=== PATIENT | female | born 1960 | race Caucasian/White ===

== ENCOUNTER 2019-10-22 13:04 | Outpatient (CLI) | payer MEDICARE, SELFPAY ==
--- NOTE | 2019-10-22 13:13 | CT_ITS ---
WS: [id number] CTA ABDOMINAL AORTA WITH RUNOFF TECHNIQUE: Contrast enhanced CTA of the abdominal aorta with bilateral lower extremity runoff. Multip lanar reformatted images were obtained. MIP reformats were also reviewed. CLINICAL INFORMATION: PERIPHERAL ARTERIAL DISEASE COMPARISON: None. DLP: 1490.[address] scans at [facility] use at least one of these dose optimization techniques: automat ed exposure control; mA and/or kV adjustment per patient size (includes targeted exams where dose is matched to clinical indication); or iterative reconstruction. FINDINGS: Normal liver. Cholecystectomy clips. Portal vein and splenic vein are patent. Splenic granu anh. Lung bases are well aerated. Celiac and SMA are patent. Proximal renal arteries are patent. Ad renal glands are normal. Normal bilateral renal parenchymal enhancement. RIGHT: Mild calcified atheromatous disease right common iliac artery. External and internal iliac art eries are patent. Right common femoral artery is patent. Superficial femoral artery stent which is pa tent. Deep femoral artery is patent. Distal superficial femoral artery and popliteal arteries are pat ent. Mild calcified atheromatous disease involving the popliteal artery. Popliteal artery is patent t o the trifurcation. Three-vessel runoff to the ankle with diminutive anterior tibial artery. LEFT: Left common iliac artery is patent with mild calcified atheromatous disease. Internal and exter nal iliac arteries are patent. Common femoral artery is patent. Mild stenosis of the origin of the wilhelm perficial femoral artery measuring approximately 30%. Deep femoral artery is patent. Superficial femo ral artery remains patent to the adductor hiatus. Mild calcified atheromatous disease popliteal arter y without significant stenosis. Popliteal artery is patent to the trifurcation. Normal 3 vessel runof f to the ankle. CT/CT angio abd aorta runof 29111 IMPRESSION: 1. Right superficial femoral artery stent which is patent. No flow-limiting st enosis. 2. No significant stenosis in the right iliac or femoral system. 3. Three-vessel runoff to the right ankle with somewhat diminutive anterior ti bial artery. 4. Normal 3 vessel runoff to the left ankle. 5. Mild stenosis origin of the left SFA measuring 30%.
[2019-10-22] MEDS: iohexol 350 mg/mL 100 mL Btl IV (13:35)
== END 2019-10-22 13:05 | disposition home or self-care (01) ==
LOC: RADWPI 13:10
PROVIDERS: Family Provider Nurse Practitioner Family; PCP Nurse Practitioner Family; Visit Provider Internal Medicine Cardiovascular Disease
DX: I70.292 Other atherosclerosis of native arteries of extremities, left leg (principal)
CPT/HCPCS: 75635; Q9967